=== PATIENT | female | born 1985 | race Caucasian/White ===

== ENCOUNTER 2016-07-07 20:26 | Emergency (ER) | payer MEDICAID ==
[2016-07-07] MEDS ORDERED: NORMAL SALINE 1,000 ML IV ONE (21:41)
--- NOTE | 2016-07-07 21:45 | ERNOTE ---
Abdominal HPI - General Chief Complaint: Abdominal Pain Time Seen by Provider: 07/07/16 21:29 Source: patient Exam Limitations: no limitations - Immun/Allergies/Home Medications Immunizatons: IMMUNIZATION HX Immunizations Up to Date No History of Influenza Vaccine No Hx Pneumococcal Vaccination No Allergies/Adverse Reactions: Allergies No Known Allergies Allergy (Unverified 07/07/16 20:34) Home Medications: HOME MEDICATIONS NK [No Home Medication] 07/07/16 [Last Taken Unknown] - History of Present Illness Narrative: onset of left flank and LLQ pain around 14:30 today, tried midol, warm bath and 800 mg of ibuprofen. Was not improving so she presented to the ED Timing: constant Quality: moderate, severe, aching Review of Systems - Review of Systems Constitutional: Absent: fever Gastrointestinal/Abdominal: Present: nausea - with pain. Absent: vomiting, diarrhea, constipation Genitourinary: Present: frequency - Patient's Past Medical History Patient History - Medical: Anemia Patient History - Cardiac/Respiratory: Bronchitis Patient History - Cancer: No Hx of Cancer Patient History - Surgical Procedures: Patient History - Other: None LMP (females 10-50): this week - Social History Living Situations: home Psych History: No pertinent hx Smoking Status: Never smoker Alcohol Use: none Drug Use: none - Immunizations Immunizations Up to Date: No Hx Pneumococcal Vaccination: No History of Influenza Vaccine: No Physical Exam - Physical Exam General Appearance: Present: wd/wn, alert, no apparent distress - States she now feels better than she has all afternoon Ears, Nose, Throat: Present: normal ENT inspection Neck: Present: normal inspection Gastrointestinal/Abdominal: Present: normal bowel sounds, tenderness - LLQ to suprapubic midline. Absent: guarding, rebound Back Exam: Present: CVA tenderness (L) - minimal Extremity Exam: Present: normal inspection, no edema, normal range of motion Neurological Exam: Present: alert, oriented, normal mood/affect, no motor/ sensory deficits Skin Exam: Present: normal color, warm/dry Lymphatic Exam: Present: no adenopathy ED Progress - Results and Orders Patient's Lab Results:: I have reviewed the patient's lab results. Results and Orders: Laboratory Tests 07/07/16 07/07/16 07/07/16 21:41 21:45 21:48 WBC 13.6 H Hgb 13.6 Hct 40.7 Plt Count 346 Sodium 144 H Potassium 3.8 Chloride 108 H Carbon Dioxide 26.1 Anion Gap 13.7 BUN 15 Creatinine 0.76 Est GFR (Non-Af Amer) 94 BUN/Creatinine Ratio 19.7 Random Glucose 127 H Calcium 8.8 Calcium Adj for Albumin 8.7 Total Bilirubin 0.5 AST 16 ALT 20 Alkaline Phosphatase 55 Total Protein 7.1 Albumin 3.7 Urine Color Pale yellow Urine Appearance Clear Urine pH 7.0 Ur Specific [place] <=1.005 Urine Protein Negative Urine Glucose (UA) Negative Urine Ketones Negative Urine Blood 10 H Urine Nitrate Negative Urine Bilirubin Negative Urine Urobilinogen Normal Ur Leukocyte Esterase Negative Urine RBC None seen Urine WBC None seen Ur Epithelial Cells 0-5 Urine Bacteria Trace Urine Culture Comments No culture indicated - Vital Signs Patient's Vital Signs:: I have reviewed the patient's vital signs. Vital Signs: Vital Signs 07/07/16 07/07/16 20:30 21:12 Temperature 36.6 C Pulse Rate 76 78 Respiratory 18 16 Rate Blood Pressure 113/69 121/67 O2 Sat by Pulse 99 96 Oximetry - CT/Ultrasound CT/Ultrasound Narrative: no acute abnormalities, no renal or ureteral stones - Progress/Reassessment Chief Complaint: Abdominal Pain Departure - Departure Clinical Impression: Abdominal pain Qualifiers: Abdominal location: left lower quadrant Qualified Code(s): R10.32 - Left lower quadrant pain Disposition: Home self-care Condition: Good Instructions: Abdominal Pain, Adult, [id number] Additional Instructions: See your telecommunications operator or primary care provider if pain returns. Return to ER as needed
[2016-07-07 21:58] LABS: Hematocrit 40.7 % (37.0-47.0); Hemoglobin 13.6 gm/dL (12.5-16.0); Mean Cell Volume 88.9 fl (78-100); Mean Corpuscular Hemoglobin 29.7 pg (27-31); Mean Corpuscular Hgb Conc 33.4 g/dl (32-36); Mean Platelet Volume 9.5 fl (6.0-9.5); Neutrophil % 88.1 % (42-75.0); Platelet Count 346 K/mm3 (150-450); Red Blood Count 4.58 M/mm3 (4.2-5.4); Red Cell Distribution Width 12.5 % (11.5-14.0); White Blood Count 13.6 K/mm3 (4.0-10.5)
[2016-07-07 22:03] LABS: Urine Bilirubin Negative (NEGATIVE); Urine Ketone Negative (NEGATIVE); Urine Nitrite Negative (NEGATIVE); Urine Protein Negative (NEGATIVE); Urine Specific Gravity <=1.005 SP.GR. (1.005-1.010); Urine Urobilinogen Normal (NORMAL)
[2016-07-07 22:12] LABS: Albumin * 3.7 gm/dl (3.4-5.0); Anion Gap 13.7 mmol/L (6.8-13.8); BUN/Creatinine Ratio 19.7 (9.0-21.6); Bilirubin, Total 0.5 mg/dL (0.0-1.1); Ca. Corrected For Albumin 8.7 mg/dL (8.4-10.2); Calcium * 8.8 mg/dL (7.9-10.9); Carbon Dioxide 26.1 mmol/L (24-32.6); Potassium 3.8 mmol/L (3.4-4.6); Total Protein 7.1 gm/dL (6.2-8.2)
[2016-07-07 22:18] LABS: Urine Appearance Clear; Urine Blood 10 /ul (NEGATIVE)
[2016-07-07 22:19] LABS: Urine Bacteria TRACE; Urine Color Pale Yellow; Urine RBC None Seen /hpf (0-5); Urine WBC None Seen /hpf (0-5)
[2016-07-08 00:24] VITALS: BP 118/58
== END 2016-07-08 00:44 | disposition home or self-care (01) ==
LOC: ER 20:26
DX: R10.32 Left lower quadrant pain (principal)